=== PATIENT | male | born 1995 | race Hispanic/Latino ===

== ENCOUNTER 2022-05-05 22:48 | Emergency (ER) | payer BC ==
[~2022-05-05] VITALS: Ht 172.7 cm; Wt 86.6 kg
== END 2022-05-05 23:55 | disposition home or self-care (01) ==
LOC: FSED 23:09
DX: R00.2 Palpitations (principal); M79.602 Pain in left arm; T43.615A Adverse effect of caffeine, initial encounter; R94.31 Abnormal electrocardiogram [ECG] [EKG]; F17.210 Nicotine dependence, cigarettes, uncomplicated
CPT/HCPCS: 93005; 99283